=== PATIENT | male | born 1945 | race Caucasian/White ===

== ENCOUNTER → 2017-06-03 | Outpatient (CLI) | payer MEDICARE, OTHER ==
[2017-06-03] MEDS: IOHEXOL 300 MG/ML 75 ML VIAL. IV ONE (14:02)
--- NOTE | 2017-06-03 15:01 | RAD ---
CT of the abdomen and pelvis with and without contrast, (CT urography), 06/03/2017: History: Gross hematuria Multidetector CT imaging was obtained prior to and following an IV bolus injection of iodinated contrast material. Postcontrast images were obtained through the kidneys in a nephrographic phase and through the entire urinary tract in an excretory phase. 3-D MIP reconstructions of the urinary tract were produced from the excretory phase data. No urinary tract calculi are identified. The renal collecting systems and ureters are not dilated. There is a 3.7 cm simple cyst arising from the posterior aspect of the left kidney. No other renal mass is evident. The prostate gland is mildly enlarged measuring 5 cm in width. There is moderate diffuse bladder wall thickening. No discrete bladder mass is identified. There is moderate streaky increased density in the fat surrounding the urinary bladder compatible with nonspecific inflammation. There is also increased vascularity about the prostate gland and bladder base. No hepatic abnormality is detected. The gallbladder is unremarkable. No pancreatic abnormality is seen. The spleen is of normal size. Moderate aortoiliac calcific plaquing is present without evidence of aneurysm. No abdominal or pelvic adenopathy is seen. There is colonic diverticulosis which is most severe in the proximal to mid sigmoid region. No paracolonic inflammatory mass or discrete fluid collection is seen. The bowel loops are not dilated. No free air or free fluid is evident in the abdomen or pelvis. There are small bilateral inguinal hernias containing only fat and spermatic cord structures. No bowel herniation is evident. Moderate multilevel degenerative changes are present in the spine. Mild degenerative changes are present at both hips. IMPRESSION: 1. No urinary tract calculi are identified. 2. Left renal cyst. 3. Nonspecific prostatic enlargement. 4. Diffuse bladder wall thickening with moderate adjacent streaky inflammation and increased vascularity. The findings suggest cystitis/prostatitis and perhaps a component of chronic bladder outlet obstruction. 5. Extensive sigmoid diverticulosis. PQRS Compliance Statement: One or more of the following individualized dose reduction techniques were utilized for this examination: 1. Automated exposure control 2. Adjustment of the mA and/or kV according to patient size 3. Use of iterative reconstruction technique
== END | disposition home or self-care (01) ==
LOC: CT 10:58
PROVIDERS: ATTEND Family Medicine
DX: N28.1 Cyst of kidney, acquired (principal); N40.0 Benign prostatic hyperplasia without lower urinary tract symptoms; K57.30 Diverticulosis of large intestine without perforation or abscess without bleeding; K40.20 Bilateral inguinal hernia, without obstruction or gangrene, not specified as recurrent
CPT/HCPCS: 74178; Q9967

== ENCOUNTER → 2017-06-25 | Outpatient (CLI) | payer MEDICARE, OTHER ==
--- NOTE | 2017-06-25 10:17 | RAD ---
DATE: 06/25/2017 EXAM: DIGITAL DIAGNOSTIC BILATERAL HISTORY: Hormone therapy, transgender screening COMPARISON: 06/24/2016 This study was interpreted with the benefit of Computerized Aided Detection (CAD). The breast parenchyma is heterogeneously dense, which could reduce sensitivity of mammography. Breast parenchyma level C. FINDINGS: No new or enlarging breast densities are seen. Minimal benign type calcification is present. No suspicious microcalcifications have developed. IMPRESSION: Stable mammograms without evidence of malignancy. BI-RADS CATEGORY: 2 BENIGN FINDING(S) RECOMMENDED FOLLOW-UP: 12M 12 MONTH FOLLOW-UP PQRS compliance statement: Patient information was entered into a reminder system with a target due date for the next mammogram. Mammography is a sensitive method for finding small breast cancers, but it does not detect them all and is not a substitute for careful clinical examination. A negative mammogram does not negate a clinically suspicious finding and should not result in delay in biopsying a clinically suspicious abnormality. "Our facility is accredited by the [employer] Mammography [employer]."
== END | disposition home or self-care (01) ==
LOC: MAMMO 09:25
PROVIDERS: ATTEND Family Medicine
DX: N62 Hypertrophy of breast (principal)
CPT/HCPCS: 77066

== ENCOUNTER → 2018-06-27 | Outpatient (CLI) | payer MEDICARE, OTHER ==
--- NOTE | 2018-06-27 11:01 | RAD ---
DATE: 06/27/2018 EXAM: DIGITAL DIAGNOSTIC BILATERAL HISTORY: Routine screening. Estrogen therapy. COMPARISON: Previous mammogram from 2018 and 2017. This study was interpreted with the benefit of Computerized Aided Detection (CAD). FINDINGS: Breast Density: DENSE The breast Parenchyma is dense, which could reduce the sensitivity of mammography. Breast parenchyma level density D.. The skin and nipples are within normal limits. No suspicious calcifications, spiculated mass or area of architectural distortion. IMPRESSION: No mammographic evidence of malignancy. Stable mammogram. BI-RADS CATEGORY: 2 BENIGN FINDING(S) RECOMMENDED FOLLOW-UP: 12M 12 MONTH FOLLOW-UP PQRS compliance statement: Patient information was entered into a reminder system with a target due date for the next mammogram. Mammography is a sensitive method for finding small breast cancers, but it does not detect them all and is not a substitute for careful clinical examination. A negative mammogram does not negate a clinically suspicious finding and should not result in delay in biopsying a clinically suspicious abnormality. "Our facility is accredited by the [employer] Mammography [employer]."
== END | disposition home or self-care (01) ==
LOC: MAMMO 10:02
PROVIDERS: ATTEND Family Medicine
DX: R92.8 Other abnormal and inconclusive findings on diagnostic imaging of breast (principal)
CPT/HCPCS: 77066

== ENCOUNTER → 2019-06-22 | Outpatient (CLI) | payer MEDICARE, OTHER ==
--- NOTE | 2019-06-28 12:27 | RAD ---
History: Routine screening. Patient is transgender and began estrogen therapy approximately 15 years ago. Technique: Bilateral digital mammographic routine views were obtained with CAD - computer aided detection. Comparison: 06/27/2018, 06/25/2017 and 06/24/2016.. Findings: Breast Tissue Density D :The breast tissue is extremely dense, lowering the sensitivity of the examination. There are no suspicious masses, microcalcifications or areas of architectural distortion. Impression: Dense breast tissue. No suspicious abnormality noted. BI-RADS Category 1: Negative. Normal interval followup. Your mammogram demonstrates that you have dense breast tissue, which could hide abnormalities, and if you have other risk factors for breast cancer that have been identified, you might benefit from supplemental screening tests that may be suggested by your ordering physician. Dense breast tissue, in and of itself, is a relatively common condition. This information is not provided to cause undue concern, but rather to raise your awareness and to promote discussion with your physician regarding the presence of other risk factors, in addition to dense breast tissue. A report of your mammography results will be sent to you and your physician. You should contact your physician if you have any questions or concerns regarding this report. A mammogram does not have 100% sensitivity and therefore a negative imaging study should not delay further work up of a suspicious abnormality. The patient will receive a letter with the results in the mail. Patient information is entered into the reminder system with a target due date for the next screening mammogram. The patient will receive a reminder. "Our facility is accredited by the [employer] Mammography [employer]." BI-RADS 1 -- negative findings (within normal)
== END ==
LOC: MAMMO 08:58
PROVIDERS: ATTEND Family Medicine
DX: Z12.31 Encounter for screening mammogram for malignant neoplasm of breast (principal)
CPT/HCPCS: 77067

== ENCOUNTER → 2020-06-21 | Outpatient (CLI) | payer MEDICARE, OTHER ==
--- NOTE | 2020-06-21 09:41 | RAD ---
EXAM: Bilateral screening mammogram. HISTORY: 44-year-old transgender patient presents for annual mammography. TECHNIQUE: Full-field digital craniocaudal and mediolateral oblique views of both breasts are obtaine d for evaluation. Computer aided detection was applied. COMPARISON: 06/22/2019 BREAST PARENCHYMAL DENSITY: Level D - Extremely dense. FINDINGS: There is no new suspicious mass, microcalcification or region of architectural distortion. There are benign calcifications within both breasts. IMPRESSION: BI-RADS Category 2: Benign finding(s). RECOMMENDATION: Annual mammography is recommended. If your mammogram demonstrates that you have dense breast tissue, which could hide abnormalities, and if you have other risk factors for breast cancer that have been identified, you might benefit from s upplemental screening tests that may be suggested by your ordering physician. Dense breast tissue, i n and of itself, is a relatively common condition. This information is not provided to cause undue c oncern, but rather to raise your awareness and to promote discussion with your physician regarding th e presence of other risk factors, in addition to dense breast tissue. A report of your mammography re sults will be sent to you and your physician. You should contact your physician if you have any ques tions or concerns regarding this report. Mammography is a sensitive method for finding small breast cancers, but it does not detect them all a nd is not a substitute for careful clinical examination. A negative mammogram does not negate a clin ically suspicious finding and should not result in delay in biopsying a clinically suspicious abnorma lity. PQRS compliance statement - Patient information was entered into a reminder system with a target due date for the next mammogram. "Our facility is accredited by the [employer] Mammography [employer]." Electronically signed by: Mita Jones MD (06/21/2020 9:39 AM) [id number]
== END ==
LOC: MAMMO 08:49
PROVIDERS: ATTEND Family Medicine
DX: Z12.31 Encounter for screening mammogram for malignant neoplasm of breast (principal)
CPT/HCPCS: 77067

== ENCOUNTER → 2020-10-07 | Outpatient (CLI) | payer MEDICARE, OTHER ==
--- NOTE | 2020-10-07 12:27 | RAD ---
EXAM: Renal sonogram. HISTORY: Hematuria. TECHNIQUE: Sonographic imaging of the kidneys and bladder was performed. COMPARISON: None. FINDINGS: The kidneys are normal in size. There is no hydronephrosis. There is a 4.3 cm simple cyst a long the lateral left kidney. There is a 1.2 cm hypoechoic lesion along the lateral right kidney whic h is too small to characterize. This appears to demonstrate slight posterior through transmission, fa voring a cystic etiology. The prostate is mildly enlarged, measuring 4.6 cm in maximum dimension with a volume of 24 cc. The ureteral jets are not seen during the exam. The prevoid bladder volume is 339 cc. IMPRESSION: 1. 4.3 cm left renal cyst and suspected 1.2 cm right renal cyst, the latter of which is too small to characterize. Sonographic follow-up in 6 months is recommended to confirm stability of the suspected right renal cyst. 2. Mild prostatomegaly. Electronically signed by: Mita Jones MD (10/07/2020 12:24 PM) [id number]
== END ==
LOC: US 11:13
PROVIDERS: ATTEND Family Medicine
DX: N28.1 Cyst of kidney, acquired (principal); R31.29 Other microscopic hematuria; N28.9 Disorder of kidney and ureter, unspecified; N40.0 Benign prostatic hyperplasia without lower urinary tract symptoms
CPT/HCPCS: 76770

== ENCOUNTER → 2021-06-30 | Outpatient (CLI) | payer MEDICARE ==
--- NOTE | 2021-06-30 11:24 | RAD ---
Bilateral digital screening mammogram (2-D): Reason for examination: Routine screening. Transgender woman who is been on estrogen replacement ther apy for 30 years. Comparison: Mammograms from 06/21/2020, 06/22/2019, 06/27/2018, and 06/25/2017. Interpretation was made with the benefit of CAD. FINDINGS: Breast density: Category D. The breasts are extremely dense which lowers sensitivity of mammography. No suspicious breast mass, malignant appearing calcifications, or architectural distortion is seen. IMPRESSION: No evidence of malignancy. Recommend routine screening. Assessment: BI-RADS 1. Negative. Recommendation: Routine screening mammograms. 3-D mammograms may be helpful in this patient with extr mechelle dense breasts. Your patient's mammogram demonstrates that she has dense breast tissue (breast density category C or D), which could hide abnormalities, and if she has other risk factors for breast cancer that have bee n identified, she might benefit from supplemental screening tests that may be suggested by you as her ordering physician. Dense breast tissue, in and of itself, is a relatively common condition. Therefo re, this information is not provided to cause undue concern, but rather to raise your awareness and t o promote discussion with your patient regarding the presence of other risk factors, in addition to d ense breast tissue. This patient's information has been entered into a reminder system for the patient to be notified wit h the results of her examination by mail and a target date for the next mammogram. A reminder letter will be generated. Electronically signed by: Farrah Quiñonez MD (06/30/2021 11:22 AM) [id number]
== END ==
LOC: MAMMO 07:46
PROVIDERS: ATTEND Family Medicine
DX: Z12.31 Encounter for screening mammogram for malignant neoplasm of breast (principal)
CPT/HCPCS: 77063; 77067

== ENCOUNTER → 2021-07-04 | Outpatient (CLI) | payer MEDICARE ==
--- NOTE | 2021-07-04 17:08 | RAD ---
US RENAL BILAT History: Reason: CYST F/U / Spl. Instructions: / History: Comparison: October 07, 2020 Procedure: Transabdominal ultrasound images are obtained of the kidneys and bladder. Findings: Right kidney: measures 11.3 x 5.0 x 5.5 cm. Previously seen left renal hypoechoic lesion is not well characterized on the current examination. No hydronephrosis. Left kidney: measures 11.0 x 5.4 x 5.5 cm. Left renal simple cyst measures 3.7 cm, similar compared to prior allowing for differences in technique. No hydronephrosis. Urinary bladder: No urinary bladder wall thickening. Bilateral ureteral jets not identified during ti me of imaging. The IVC is normal caliber. The visualized abdominal aorta is normal caliber. IMPRESSION: 1. Right renal hypoechoic lesion not well characterized the current examination. If persistent clini kennedy concern, CT with contrast can further assess. 2. Simple left renal cyst. Electronically signed by: Jaime Iglesisa DO (07/04/2021 5:06 PM) [id number]
== END ==
LOC: US 09:53
PROVIDERS: ATTEND Family Medicine
DX: N28.1 Cyst of kidney, acquired (principal)
CPT/HCPCS: 76770